=== PATIENT | female | born 1955 | race Caucasian/White ===

== ENCOUNTER → 2017-10-30 17:37 | Outpatient (CLI) | payer MEDICAID | END | disposition home or self-care (01) | LOC: D.MRI 17:37 | DX: M54.12 Radiculopathy, cervical region (principal) ==

== ENCOUNTER → 2019-01-15 12:40 | Outpatient (CLI) | payer MEDICARE ==
[2019-01-15 14:50] LABS: BASOPHILS 0.3 % (0-2); EOSINOPHILS 2.9 % (0-7); HEMATOCRIT 47.7 % (36.0-48.0); HEMOGLOBIN 16.4 g/dL (12-16); IMMATURE GRANULOCYTES 0.1 % (0-5); LYMPHOCYTES 31.2 % (15-50); MCH 32.4 pg (26.0-34.0); MCHC 34.4 g/dL (31.0-37.0); MCV 94.3 fL (80.0-100.0); MEAN PLATELET VOLUME 9.6 fL (7.4-10.4); MONOCYTES 6.4 % (2-11); NEUTROPHILS 59.1 % (40-80); PLATELET COUNT 347 10x3/uL (130-400); RBC 5.06 10x6/uL (4.00-5.40); RDW 12.5 % (11.5-14.5); WBC 7.9 10x3/uL (4.8-10.8)
== END | disposition home or self-care (01) ==
LOC: D.RT 12:40
PROVIDERS: ATTEND Internal Medicine Pulmonary Disease
DX: J44.9 Chronic obstructive pulmonary disease, unspecified (principal)

== ENCOUNTER → 2019-07-28 14:46 | Outpatient (CLI) | payer MEDICARE ==
[2019-07-28 18:45] LABS: BASOPHILS 0.4 % (0-2); EOSINOPHILS 10.3 % (0-7); HEMATOCRIT 45.4 % (36.0-48.0); HEMOGLOBIN 14.5 g/dL (12-16); IMMATURE GRANULOCYTES 0.1 % (0-5); LYMPHOCYTES 31.4 % (15-50); MCH 31.1 pg (26.0-34.0); MCHC 31.9 g/dL (31.0-37.0); MCV 97.4 fL (80.0-100.0); MEAN PLATELET VOLUME 10.7 fL (7.4-10.4); MONOCYTES 7.6 % (2-11); NEUTROPHILS 50.2 % (40-80); PLATELET COUNT 335 10x3/uL (130-400); RBC 4.66 10x6/uL (4.00-5.40); RDW 13.2 % (11.5-14.5); WBC 7.5 10x3/uL (4.8-10.8)
== END | disposition home or self-care (01) ==
LOC: D.RAD 14:46 → D.LABREF 14:46
PROVIDERS: ATTEND Internal Medicine Pulmonary Disease
DX: J20.9 Acute bronchitis, unspecified (principal)

== ENCOUNTER → 2020-09-09 13:57 | Outpatient (CLI) | payer MEDICARE | END | disposition home or self-care (01) | LOC: D.LAB 08:15 → D.RAD 14:30 → D.RT 15:00 | PROVIDERS: ATTEND Internal Medicine Pulmonary Disease | DX: J82.83 Eosinophilic asthma (principal); J44.9 Chronic obstructive pulmonary disease, unspecified ==